=== PATIENT | female | born 1940 | race Caucasian/White ===

== ENCOUNTER 2018-11-16 14:20 | Outpatient (CLI) | payer MEDICARE, OTHER ==
--- NOTE | 2018-11-17 18:57 | Diagnostic Imaging Report ---
HA MAYO (ALESHA) - OP [facility] [address] [id number] Report Submission Date: Nov 17, 2018 11:52:32 AM DIRECTOR REGULATORY COMPLIANCE Patient Study Name: EVELYN FROST Date: Nov 16, 2018 12:00:00 AM DIRECTOR REGULATORY COMPLIANCE Modality Type: DEXA\OT Gender: F Description: DEXA : 42 Institution: [facility] Physician: HA MAYO) - OP Examination: Bone density History: Assess bone mineralization Comparison exams: None available Technique: DEXA protocol Findings: Average bone mineral density from L1 through L4: 1.561 grams cm2. T score: 3.2 Average bone mineral density of the left femoral neck: 1.143 grams cm2. T score: 1.1 Average bone mineral density of the right femoral neck: 1.096 grams cm2. T score: 0.7 Impression: Normal lumbar spine and hip mineralization for age Electronically signed on Nov 17, 2018 11:52:32 AM DIRECTOR REGULATORY COMPLIANCE by: Caden LING
== END 2018-11-16 15:00 ==
LOC: RAD 14:20
PROVIDERS: ATTEND Nurse Practitioner Family
DX: Z13.820 Encounter for screening for osteoporosis (principal); Z78.0 Asymptomatic menopausal state
CPT/HCPCS: 77080